=== PATIENT | female | born 1985 | race American Indian/Alaskan Native ===

== ENCOUNTER 2017-06-09 19:00 | Inpatient (IN) | payer BC, OTHER ==
[2017-06-09 20:00] VITALS: BMI 25.5
[2017-06-09 20:53] LABS: BASO % 0.3 % (0.0-2.0); EOS # 0.2 K/uL (0.0-0.7); EOS % 1.2 % (0.0-4.0); HEMATOCRIT 39.7 % (34.0-47.0); LYMPH # 2.1 K/uL (1.0-4.3); LYMPH % 16.2 % (20.0-40.0); MEAN CELL VOLUME 92.5 fl (81.0-99.0); MEAN CORPUSCULAR HGB CONC 33.5 g/dL (33.0-37.0); MEAN PLATELET VOLUME 10.1 fl (7.2-11.7); MONO # 0.9 K/uL (0.0-0.8); MONO % 7.2 % (0.0-10.0); NEUT # 9.5 K/uL (1.8-7.0); NEUT % 75.1 % (50.0-75.0); RED CELL DISTRIBUTION WIDTH 13.4 % (11.5-14.5); WHITE BLOOD COUNT 12.7 K/uL (4.8-10.8)
--- NOTE | 2017-06-10 08:55 | OBADHP ---
Datetime: 06/09/2017 20:13 Admit Comment, IP Provider: CC: Induction of labor HPI: 31 y/o F , 41 wks GA, NADJA 06/02/17 comes to the L_D for ADRIANO induction and labor. pt denies any nausea or vimiting. no headache or visual changes - good FM, negative CTX/LOF/BV PMI: no issue so far with this , un remarkable lab works so far ecxept PAP- HGSIL PMH: none PSH: nonw All: NKDA, dairy products and mold Med: [facility] OBGYN: PAP-HGSIL, colposcopy was done in december SH: no alcohol or smoking or illicit drug use FH: noncontributory ROS: As per HPI O: VS: stable, 119/80 FHR 125 GEN: NAD Cardio: s1s2, no M/G/R Resp: clear breath sounds b/l Abdomen: BS+, gravid uterus EXT: No edema, calves nontender NEURO/PSYCHI: AAOx3, no grossly focal deficit, preserved affect and mood. A/P:: 31 y/o F , 41 wks GA, NADJA 06/02/17 comes to the L_D for ADRIANO induction and labor. - admit to unit - Induction and labor protocol initiated - monitor VS - reassuring FHT Case discussed with Dr. Tim --- Johana Salmeron, PGY-1 Name: I saw on exam and patient presentation. I discussed with patient the induction of labor process an d all patient questions answered. Patient examined and Cervidil placed. Both maternal well-being and well-being reassuring at this time. Meeta Pelvic Type - PN: Adequate Extremities - PN: Normal Abdomen - PN: Normal Back - PN: Normal Lungs - PN: Normal Heart - PN: Normal Thyroid - PN: Normal Neurologic - PN: Normal HEENT - PN: Normal General - PN: Normal FHR - Baseline A Provider: 125 Vital Signs Provider: Reviewed; Within Normal Limits IP Chief Complaint: Scheduled induction of labor NICHD Variability Prov Fetus A: Moderate 6-25bpm NICHD Accel Fetus A IP Provider: 15X15 FHR Category Provider Fetus A: Category I NICHD Decel Fetus A IP Provider: None DTRs - PN: Normal IP Adm Impression: Term, intrauterine IP Admit Plan: Admit to unit; Initiate labor induction protocol
[2017-06-10] MEDS ORDERED: Lidocaine 1% Inj (20ml) ONE (10:04)
[2017-06-10] MEDS ORDERED: Oxytocin 30 units/LR 500ML 30 U/500 ML BAG IV ONE ×2 (10:04→16:57)
--- NOTE | 2017-06-10 10:29 | OBPN ---
Datetime: 06/10/2017 10:00 IP Progress Impression: Normal progression of labor; Reassuring heart rate; Reactive non-stres s test IP Informed Consent Obtain: Vaginal Delivery; Risks, Benefits and Alternatives Discussed IP Procedures: Artificial ROM IP Progress Plan: Continue present management; Augmentation Pool Provider: Positive Membranes, Provider: Ruptured Amniotic Fluid Color, Provider: Clear Contraction Comments Provider: 2-5 FHR - Baseline A Provider: 120 Presentation-Admit: Vertex IP Progress Note Comment: OB Hospitalist on-call. Sign out rec'd from Dr Tim. IOL with Cervid il for 41w/postdate preg. She feels a few CTX. +FM. Notified that she was 2-3cm. chart rev'd GBS Neg A: Latent phase of labor PLAN: AROM clear fluid Her condition was discussed with pt and her . Also, discussed labor, delivery, , medications - pain and augmentation ... She understood about EFW (possible 10% discrepancy and gr owth) and wanted to proceed with labor trial. Vital Signs Provider: Reviewed; Within Normal Limits NICHD Accel Fetus A IP Provider: 15X15 FHR Category Provider Fetus A: Category I NICHD Variability Prov Fetus A: Moderate 6-25bpm Dilatation, Provider: 2-3 Effacement, Provider: 50 Station, Provider: -2 NICHD Decel Fetus A IP Provider: None
[2017-06-10] MEDS ORDERED: Oxytocin 30 units/LR 500ML 30 U/500 ML BAG IV SCH (10:45)
[2017-06-10] MEDS: Lactated Ringer's 1,000 ML IV SCH ×2 (11:01→12:00)
--- NOTE | 2017-06-10 14:50 | OBPN ---
Datetime: 06/10/2017 14:15 IP Progress Impression Other: Active phase of labor IP Progress Impression: Normal progression of labor IP Informed Consent Obtain: Vaginal Delivery; Risks, Benefits and Alternatives Discussed IP Progress Plan: Continue present management; Anesthesia consult Pool Provider: Positive (Annotations: Data stored by CPN on behalf of user) Membranes, Provider: Ruptured Contraction Comments Provider: q2m FHR - Baseline A Provider: 120 Presentation-Admit: Vertex IP Progress Note Comment: decel noted at 14:05pm. She is sitting up and feels more CTX for the past half hour. [id number]'s +LTV decel x 2 (not repetitive noted)...good recovery CTX 1 1/2 -2 min Active phase of labor PLAN observe labor progress Pitocin at 4miu/h NICHD Accel Fetus A IP Provider: 15X15 FHR Category Provider Fetus A: Category II NICHD Variability Prov Fetus A: Moderate 6-25bpm Dilatation, Provider: 8-9 Effacement, Provider: 90 Station, Provider: -1 NICHD Decel Fetus A IP Provider: Variable
--- NOTE | 2017-06-10 14:54 | OBPN ---
Datetime: 06/10/2017 14:35 IP Progress Note Comment: OB Hospitalist on-call Called back after exam. CTX nted to be 1-2m decels noted...Pitocin shut off; O2 face mask; FHR re covery noted Dilatation, Provider: 10 Effacement, Provider: 100 Station, Provider: 0
[2017-06-10] MEDS ORDERED: Oxycodone/Acetaminophen 5/325 mg Tab PO PRN (16:40)
[2017-06-10] MEDS ORDERED: Benzocaine/Menthol SPRAY TOP PRN (16:40)
--- NOTE | 2017-06-11 01:59 | OBDS ---
DELIVERY PERSONNEL Delivery Doctor: Pro Smith DO Tailor Garment Fitter: Davina Hernandez RN MATERNAL INFORMATION Delivery Anesthesia: Local Medications in Delivery: pitocin Estimated Blood Loss (ml): 200 Placenta Cultured: No Maternal Complications: None RN Comments: pt delivered viable male infant, baby was stimulated, dried and placed on maternal ches t for skin to skin. apgars were 9 and 9. pt was repaired for second degree lac perineal. infant remained on maternal chest for bonding and latching. mother and baby remained in stable condition. Provider Comments: Over intact perineum, of live male infant from [facility]. Infant was bulb s uctioned at perineum. Infant was placed on mother, delayed cord clamp and father cut cord. Placenta delivreed intact spontaneously. EBL 200cc She remained stable (Annotations: Data stored by N on behalf of user) LABOR SUMMARY EDC: 06/02/2017 00:00 No. Babies in Womb: 1 Attempted: No Labor Anesthesia: None LABOR INFORMATION Reason for Induction: Postterm Onset of Labor: 06/10/2017 10:00 Complete Dilatation: 06/10/2017 14:30 Cervical Ripening Agents: Cervidil (Annotations: Cervidil inserted by Dr. Tim ) Oxytocin: Augmentation Group B Beta Strep: Negative Steroids Given: None Reason Steroids Not Administered: Not Applicable MEMBRANES Membranes Rupture Method: Artificial Rupture of Membranes: 06/10/2017 10:00 Length of Rupture (hrs): 6.07 Amniotic Fluid Color: Clear Amniotic Fluid Amount: Small Amniotic Fluid Odor: Normal STAGES OF LABOR Stage 1 hrs: 4 Stage 1 min: 30 Stage 2 hrs: 1 Stage 2 min: 34 Stage 3 hrs: 0 Stage 3 min: 16 Total Time in Labor hrs: 6 Total Time in Labor min: 20 VAGINAL DELIVERY Episiotomy: None Laceration Extension: Second Degree Laceration Type: Perineal Laceration Repair: Yes Laceration Repair Note: 1% Lidocaine was infiltrated (7cc). Second degrere lac (irregular tothe lef t) was repaired with 2.0 Vicryl Rapide suture. Hemostasis assured Initial Vag Sponge Count: 10 Final Vag Sponge Count: 10 Initial Vag Sharps Count: 3 Final Vag Sharps Count: 3 Sponge Count Correct: Yes Sharps Count Correct: Yes Count Comment: 4 suture needles One syringe BABY A INFORMATION Infant Delivery Date/Time: 06/10/2017 16:04 Method of Delivery: Vaginal Born in Route : No : N/A Forceps: N/A Vacuum Extraction: N/A Shoulder Dystocia : No SHOULDER DYSTOCIA BABY A Delivery Date/Time: 06/10/2017 16:04 PRESENTATION/POSITION BABY A Presentation: Cephalic PLACENTA INFORMATION BABY A Placenta Delivery Time : 06/10/2017 16:20 Placenta Method of Delivery: Spontaneous Placenta Status: Delivered SCORES BABY A Heart Rate 1 min: >100 bpm Resp Effort 1 min: Good Cry Reflex Irritability 1 min: Cough or Sneeze or Pulls Away Muscle Tone 1 min: Active Motion Color 1 min: Body [place], Extremities Blue Resuscitation Effort 1 min: N/A SCORE 1 MIN: 9 Heart Rate 5 min: >100 bpm Resp Effort 5 min: Good Cry Reflex Irritability 5 min: Cough or Sneeze or Pulls Away Muscle Tone 5 min: Active Motion Color 5 min: Body [place], Extremities Blue Resuscitation Effort 5 min: N/A SCORE 5 MIN: 9 INFANT INFORMATION BABY A Gestational Age at Delivery: 41.1 Gestational Status: Term Outcome : Liveborn Condition : Stable Infant Sex: Male IDENTIFICATION/MEDS BABY A ID Band Location: Left Leg; Left Arm WEIGHT/LENGTH BABY A Infant Birthweight (gms): 4465 Infant Weight (lb): 9 Infant Weight (oz): 13 CORD INFORMATION BABY A No. Cord Vessels: 3 Nuchal Cord : N/A Cord Blood Taken: Yes Infant Suction: Mouth
[2017-06-11 19:02] LABS: HEMATOCRIT 34.2 % (34.0-47.0); MEAN CELL VOLUME 93.2 fl (81.0-99.0); MEAN CORPUSCULAR HEMOGLOBIN 30.8 pg (27.0-31.0); RED CELL DISTRIBUTION WIDTH 13.4 % (11.5-14.5); WHITE BLOOD COUNT 16.1 K/uL (4.8-10.8)
[2017-06-12] MEDS ORDERED: Measles, Mumps, and Rubella 0.5 ML VIAL SC ONE (11:40)
--- NOTE | 2017-06-12 12:15 | OBPPN ---
Datetime: 06/12/2017 12:13 PP Pain Prov: Within normal limits PP Nausea Prov: Denies PP Flatus Prov: Yes PP BM Prov: Yes PP Breasts Prov: Normal PP Heart Prov: Normal PP Lungs Prov: Normal PP Abdomen/Uterus Prov: Normal PP Lochia Prov: Normal PP Vulva/Perineum Prov: Normal PP CVA Tenderness Prov: Normal PP Extremities Prov: Normal PP Comments Phys Exam Prov: Uterus firm below umbilicus No deep calf tenderness bilaterally PP Impression Prov: Normal progression PP Plan Prov: Discharge PP Progress Note Prov: day #2 status post normal spontaneous vaginal delivery, patient re covering well Patient discharged home today Follow-up with Dr. Nagy in 6 weeks Vital Signs Provider PP: Reviewed; Within Normal Limits Datetime: 06/11/2017 16:12 PP Progress Prov: Normal
--- NOTE | 2017-06-12 12:15 | OBDCSUM ---
Datetime: 06/12/2017 12:14 Discharged to, Provider: Home Follow up at, Provider: [facility] Disch Instr Activity: Normal activity Disch Instr Diet: Regular Discharge Instructions, Provider: Routine instructions given Discharge Diagnosis, Provider: Term Delivered Discharge Time: 06/12/2017 12:14 Follow up in weeks, Provider: 6 WEEKS Disch Referrals: None Contraception discussed, Prov: Yes Datetime: 06/12/2017 10:52 Discharged to, Provider: Home Follow up at, Provider: [facility] Disch Instr Activity: Normal activity Disch Instr Diet: Regular Follow up in weeks, Provider: 6 weeks Disch Activity Restrictions: No exercising
[2017-06-12 20:38] VITALS: BP 94/56; PULSE 82; RESP 18; TEMP 97.4; O2SAT 98
--- NOTE | 2017-06-25 08:07 | OBHP ---
Datetime: 06/10/2017 14:35 Dilatation, Provider: 10 Effacement, Provider: 100 Station, Provider: 0 Datetime: 06/10/2017 14:15 Presentation-Admit: Vertex FHR - Baseline A Provider: 120 Membranes, Provider: Ruptured Contraction Comments Provider: q2m Pool Provider: Positive (Annotations: Data stored by CPN on behalf of user) NICHD Variability Prov Fetus A: Moderate 6-25bpm NICHD Accel Fetus A IP Provider: 15X15 FHR Category Provider Fetus A: Category II NICHD Decel Fetus A IP Provider: Variable Datetime: 06/10/2017 10:00 Amniotic Fluid Color, Provider: Clear Vital Signs Provider: Reviewed; Within Normal Limits Datetime: 06/09/2017 20:13 IP Adm Impression: Term, intrauterine IP Admit Plan: Admit to unit; Initiate labor induction protocol Admit Comment, IP Provider: CC: Induction of labor HPI: 31 y/o F , 41 wks GA, NADJA 06/02/17 comes to the L_D for ADRIANO induction and labor. pt denies any nausea or vimiting. no headache or visual changes - good FM, negative CTX/LOF/BV PMI: no issue so far with this , un remarkable lab works so far ecxept PAP- HGSIL PMH: none PSH: nonw All: NKDA, dairy products and mold Med: PNV OBGYN: PAP-HGSIL, colposcopy was done in december SH: no alcohol or smoking or illicit drug use FH: noncontributory ROS: As per HPI O: VS: stable, 119/80 FHR 125 GEN: NAD Cardio: s1s2, no M/G/R Resp: clear breath sounds b/l Abdomen: BS+, gravid uterus EXT: No edema, calves nontender NEURO/PSYCHI: AAOx3, no grossly focal deficit, preserved affect and mood. A/P:: 31 y/o F , 41 wks GA, NADJA 06/02/17 comes to the L_D for ADRIANO induction and labor. - admit to unit - Induction and labor protocol initiated - monitor VS - reassuring FHT Case discussed with Dr. Tim --- Johana Salmeron, PGY-1 Name: I saw on exam and patient presentation. I discussed with patient the induction of labor process an d all patient questions answered. Patient examined and Cervidil placed. Both maternal well-being and well-being reassuring at this time. Meeta Pelvic Type - PN: Adequate Extremities - PN: Normal Abdomen - PN: Normal Back - PN: Normal Lungs - PN: Normal Heart - PN: Normal Thyroid - PN: Normal Neurologic - PN: Normal HEENT - PN: Normal General - PN: Normal EGA AdmitDate IP: 41.0 IP Chief Complaint: Scheduled induction of labor DTRs - PN: Normal
== END 2017-06-12 16:00 | disposition home or self-care (01) | DRG 775 ==
LOC: H.EROB2 19:00 → H.L&D 20:16 → H.OB/GYN 06-10 18:15
PROVIDERS: ADMIT Obstetrics & Gynecology; ATTEND Obstetrics & Gynecology
PROC: 0KQM0ZZ Repair Perineum Muscle, Open Approach (ICD-10-PCS; principal; 2017-06-09)
PROC: 10E0XZZ Delivery of Products of Conception, External Approach (ICD-10-PCS; 2017-06-09)
PROC: 4A1HXCZ Monitoring of Products of Conception, Cardiac Rate, External Approach (ICD-10-PCS; 2017-06-09)
DX: O48.0 Post-term pregnancy (principal); O70.1 Second degree perineal laceration during delivery; Z37.0 Single live birth; Z3A.41 41 weeks gestation of pregnancy